=== PATIENT | female | born 1975 | race Two or more races ===

== ENCOUNTER 2018-10-30 10:56 | Day surgery (SDC) | payer OTHER | END 2018-10-30 15:25 | disposition home or self-care (01) | LOC: AMB-ENDOS 10:56 → ADM 14:15 → EDBD 14:15 → AMB-ENDOS 15:25 | DX: K29.50 Unspecified chronic gastritis without bleeding (principal); K44.9 Diaphragmatic hernia without obstruction or gangrene ==